=== PATIENT | female | born 1990 | race Caucasian/White ===

== ENCOUNTER 2018-10-02 20:33 | Outpatient (CLI) | payer MEDICAID ==
[~2018-10-02] VITALS: Ht 152.4 cm; Wt 66.9 kg
[~2018-10-02 20:33] MED LIST: ACET500C5 PO; PRENAT PO
[2018-10-02] MEDS ORDERED: ONDANSETRON 4 MG INJ IV STA (21:00)
[2018-10-02 21:32] VITALS: Ht 152.4 cm; Wt 66.9 kg
[2018-10-02] MEDS: LACTATED RINGER'S 1,000 ML IV* PRN ×2 (22:02→23:57)
--- NOTE | 2018-10-03 01:39 | PN ---
Triage Information Date/Time Reason for visit: nausea and vomiting Weeks of Gestation 26 weeks /Para Diabetes: none Hypertention: none Objective Intake and Output 10/02/18 10/02/18 10/03/18 1515:00 23:00 07:00 IntakeIntake Total 1000 ml BalanceBalance 1000 ml Heart Rate: 130's Heart Rate Comments Reactive Contractions: None Results/Medications Result Diagram: 10/02/18 2349 10/02/18 2349 Results 24 hrs Laboratory Tests Test 10/02/18 23:49 10/02/18 23:50 White Blood Count 7.7 # Red Blood Count 3.53 L Hemoglobin 11.3 L Hematocrit 33.6 L Mean Corpuscular Volume 95.2 Mean Corpuscular Hemoglobin 32.0 Mean Corpuscular Hemoglobin Concent 33.6 Red Cell Distribution Width 13.3 Platelet Count 237 Mean Platelet Volume 10.3 Immature Granulocytes % 0.500 H Neutrophils % 66.8 Lymphocytes % 23.5 Monocytes % 7.3 Eosinophils % 1.8 Basophils % 0.1 Nucleated Red Blood Cells % 0.0 Immature Granulocytes # 0.040 H Neutrophils # 5.1 Lymphocytes # 1.8 Monocytes # 0.6 Eosinophils # 0.1 Basophils # 0.0 Nucleated Red Blood Cells # 0.0 Sodium Level 137 Potassium Level 3.6 Chloride Level 104 Carbon Dioxide Level 23 Anion Gap 10 Blood Urea Nitrogen 5 L Creatinine 0.45 Est Glomerular Filtrat Rate mL/min > 60 Glucose Level 104 Calcium Level 8.9 Total Bilirubin 0.2 Direct Bilirubin 0.00 Indirect Bilirubin 0.2 Aspartate Amino Transf (AST/SGOT) 18 Alanine Aminotransferase (ALT/SGPT) 24 Alkaline Phosphatase 61 Total Protein 6.2 Albumin 3.4 Globulin 2.80 Albumin/Globulin Ratio 1.21 Urine Color STRAW Urine Clarity CLEAR Urine pH 8.0 Urine Specific [place] 1.006 Urine Ketones NEGATIVE Urine Nitrite NEGATIVE Urine Bilirubin NEGATIVE Urine Urobilinogen NEGATIVE Urine Leukocyte Esterase NEGATIVE Urine Hemoglobin NEGATIVE Urine Glucose NEGATIVE Urine Total Protein NEGATIVE Medications Current Medications Lactated Ringer's 1,000 ml @ 125 mls/hr Q8H PRN IV* IV HYDRATION Last administered on 10/02/18at 23:57; Admin Dose 125 MLS/HR; Start 10/02/18 at 21:00 Disposition: Discharge Assessment/Plan After IV hydration, patient feels better. JOSH DUNN MD Oct 03, 2018 01:39
== END 2018-10-03 01:42 | disposition home or self-care (01) ==
LOC: OBT 20:33 → L-D 20:35 → OBT 10-03 01:42
PROVIDERS: ATTEND Obstetrics & Gynecology
DX: O21.2 Late vomiting of pregnancy (principal); Z3A.26 26 weeks gestation of pregnancy
CPT/HCPCS: 36415; 76815; 80053; 81003; 85025; 96360; 96361; 96375; J2405; Z7500; G0463

== ENCOUNTER 2018-12-14 07:45 | Inpatient (IN) | payer MEDICAID ==
[~2018-12-14] VITALS: Ht 154.9 cm; Wt 72.7 kg
[~2018-12-14 07:45] MED LIST changes: -ACET500C5 PO
[2018-12-14] MEDS: LACTATED RINGER'S 1,000 ML IV SCH ×3 (08:17→21:48)
[2018-12-14 08:23] VITALS: Ht 154.9 cm; Wt 72.7 kg
[2018-12-14 08:24] VITALS: BP 147/76; PULSE 69; RESP 18
[2018-12-14] MEDS ORDERED: OXYTOCIN 30 UNITS/LR 500 ML IV PRN ×2 (08:30→15:30)
[2018-12-14] MEDS ORDERED: CARBOPROST 250 MCG INJ IM PRN ×2 (08:30→15:30)
[2018-12-14] MEDS ORDERED: MISOPROSTOL 200 MCG TAB PR PRN ×2 (08:30→15:30)
[2018-12-14] MEDS ORDERED: CEFAZOLIN 2 GM/50 ML (PMX) 50 ML IVPB SCH (08:30)
[2018-12-14] MEDS ORDERED: METHYLERGONOVINE 0.2 MG INJ IM PRN ×2 (08:30→15:30)
[2018-12-14] MEDS ORDERED: TERBUTALINE 0 ML ONE (09:12)
[2018-12-14] MEDS ORDERED: TERBUTALINE 1 MG/ML INJ SC ONE (09:30)
[2018-12-14] MEDS ORDERED: morphine SULFATE/PF (10 MG/10 ML) INJ ONE (09:50)
[2018-12-14] MEDS ORDERED: FENTAnyl 50 MCG/ML VIAL ONE (09:50)
--- NOTE | 2018-12-14 09:51 | HP ---
Date/Time of Note Date/Time of Note DATE: 12/14/18 TIME: 09:38 OB - History Hx of Present Free Text/Dictation 28y.0 here at 36w3d with c/o uc's 3-5min with severe pelvic pain which is constant. membrane intact she is scheduled for 12/19/18 for primary c/s for placenta previa on u/s 12/07/18 no VE done since she is diagnosed to have complete placenta previa( post) care was initiated on 13w, 1hr GTT was high f/b 3hr GTT which was wnl prepate for primary c/s. Chief Complaint: UC's Estimated Due Date: Jan 08, 2019 : 3 Para: 1 Spontaneous : 1 Therapeutic : 0 Care: Good Care Obstetrical Complications: None Medical Complications: None Past Family/Social History * Past Medical, Surgical, Family and Obstetric Histories reviewed from chart. Blood Type: O+ Rubella: immune RPR/VDRL: Negative GBS Status: Negative HBsAG: Negative OB Admission Exam Vital Signs Vital Signs Vital Signs Date Temp Pulse Resp B/P (MAP) Pulse Ox O2 O2 Flow FiO2 Time Delivery Rate 12/14/18 98.1 69 18 147/76 08:24 (99) Physical Exam HEENT: WNL Heart: Rhythm Normal Lungs: Clear, Equal Abdomen: WNL Extremities: Normal Reflexes: Normal Cervical Dilatation: other (no VE) Station: Other Amniotic Fluid: Other Heart Rate: 140's Accelerations: Accelerations Present Decelerations: No Decelerations Varibility: Moderate Contractions on Admission: < 5 Minutes Apart Intensity: Moderate Last 72 hours Lab Results OB Assessment/Plan Other Assessment: IUP 36w3d complete placenta previa in labor Plan: Section EFRAIN EAST MD Dec 14, 2018 09:49
[2018-12-14] MEDS ORDERED: ONDANSETRON 4 MG INJ ONE (10:01)
[2018-12-14] MEDS ORDERED: MIDAZOLAM 1 MG/ML 2 ML INJ ONE ×2 (10:01→10:22)
[2018-12-14] MEDS ORDERED: FAMOTIDINE 20 MG INJ ONE (10:01)
[2018-12-14] MEDS ORDERED: DEXAMETHASONE 4 MG/ML 1 ML INJ ONE (10:01)
--- NOTE | 2018-12-14 10:21 | PREAC ---
Date/Time of Note Date/Time of Note DATE: 12/14/18 TIME: 10:20 Anesthesia Eval and Record Evaluation Time Pre-Procedure Interview DATE: 12/14/18 TIME: 10:20 Age 28 Sex female NPO: 8 hrs Preoperative diagnosis placenta previa Planned procedure c section Past Medical History Past Medical History: None Surgery & Anesthesia Issues No known issue Meds Anticoagulation: No Beta Julio César within 24 hr: No Reason Beta Julio César not given: Pt. not on B-Julio César Reported Medications Multivit/Min/Fol Ac/Iron/Pren* ( S*) 1 Tab Tab, 1 TAB PO DAILY, TAB 01/06/14 Current Medications Lactated Ringer's 1,000 ml @ 125 mls/hr Q8H IV Last administered on 12/14/18at 08:17; Admin Dose 125 MLS/HR; Start 12/14/18 at 08:30 Cefazolin Sodium/ Dextrose 50 ml @ 100 mls/hr ONCE IVPB ; Start 12/14/18 at 08:30 Oxytocin/Lactated Ringer's 500 ml @ 0 mls/hr ONCE PRN IV .VAGINAL BLEEDING; Start 12/14/18 at 08:30 Methylergonovine Maleate (Methergine) 0.2 mg ONCE PRN IM .VAGINAL BLEEDING; Start 12/14/18 at 08:30 Carboprost Tromethamine (Hemabate) 250 mcg ONCE PRN IM .VAGINAL BLEEDING; Start 12/14/18 at 08:30 Misoprostol (Cytotec) 1,000 mcg ONCE PRN [place] .VAGINAL BLEEDING; Start 12/14/18 at 08:30 Meds reviewed: Yes Allergies Coded Allergies: No Known Allergy (Unverified , 12/23/13) Allergies Reviewed: Yes Labs/Studies Labs Reviewed: Reviewed by anesthesiologist Result Diagram: 12/14/18 0840 Laboratory Tests 12/14/18 08:40 Blood Bank Test 12/14/18 08:10 Antibody Screen NEGATIVE Blood Product Summary Counts Blood Type O POSITIVE Crossmatch Red Blood Cells Rh Immune Globulin Candidate NO test: N/A Pre-procedure Exam Last vitals Vital Signs Date Temp Pulse Resp B/P (MAP) Pulse Ox O2 O2 Flow FiO2 Time Delivery Rate 12/14/18 98.1 69 18 147/76 08:24 (99) Airway: Adequate mouth opening, Adequate thyromental dist Mallampati: Mallampati III Teeth: Normal Lung: Normal Heart: Normal ASA Physical Status ASA physical status: 2 Emergency: None Pre-operative Attestations Prior to commencing anesthesia and surgery, the patient was re-evaluated, there was verification of: *The patient's identity *The results of appropriate recent lab work and preoperative vital signs *The above evaluation not changing prior to induction *Anesthetic plan, risk benefits, alternative and complications discussed with patient/family; questions answered; patient/family understands, accepts and wishes to proceed. LAN JACOME DO Dec 14, 2018 10:21
[2018-12-14] MEDS ORDERED: ZOLPIDEM 5 MG TAB PO PRN ×2 (10:30→15:30)
[2018-12-14] MEDS ORDERED: HYDROmorphONE 0.5 MG/0.5 ML SYG IV PRN ×2 (10:30)
[2018-12-14] MEDS ORDERED: DIPHENHYDRAMINE 50 MG INJ IV PRN ×2 (10:30→15:30)
[2018-12-14] MEDS ORDERED: NALOXONE (0.4 MG/ML) INJ IV PRN (10:30)
[2018-12-14] MEDS ORDERED: KETOROLAC 30 MG INJ IV PRN (10:30)
[2018-12-14] MEDS ORDERED: ONDANSETRON 4 MG INJ IV PRN ×2 (10:30→15:30)
--- NOTE | 2018-12-14 10:54 | PAC ---
Date/Time of Note Date/Time of Note DATE: 12/14/18 TIME: 10:53 Post-Anesthesia Notes Post-Anesthesia Note Last documented vital signs Vital Signs Date Temp Pulse Resp B/P (MAP) Pulse Ox O2 O2 Flow FiO2 Time Delivery Rate 98 65 20 127/62 100 0 Activity: WNL Respiratory function: WNL Cardiovascular function: WNL Mental status: Baseline Pain reasonably controlled: Yes Hydration appropriate: Yes Nausea/Vomiting absent: Yes LAN JACOME DO Dec 14, 2018 10:54
--- NOTE | 2018-12-14 11:51 | OPPN ---
Date/Time of Note Date/Time of Note DATE: 12/14/18 TIME: 11:40 Operative Report Planned Procedure Procedure date Dec 14, 2018 Procedure(s) primary LTCS Performed by see signature line Senior Peoplesoft Developer: KATHRYN LAU MD 2nd Senior Peoplesoft Developer none Anesthesiologist: LAN JACOME DO Pre-procedure diagnosis IUP 36w1d complete placenta previa in labor [id number] Anesthesia Type: [id number] spinal Post-Procedure Post-procedure diagnosis delivered normal male same as above Findings Live Baby [m], Apgars [8] and [9], weight [6lb4oz], position [lot], [vx ] presentation [0]cord. Estimated Blood Loss: 500 - 600 mls Specimen(s) none Grafts/Implant(s) none Complication(s) none EFRAIN EAST MD Dec 14, 2018 11:51
[2018-12-14 13:00] VITALS: BP 107/63; PULSE 71
--- NOTE | 2018-12-14 14:20 | OPR ---
DATE OF OPERATION: 12/14/2018 PREOPERATIVE DIAGNOSES: 36 weeks and 1 day with a complete placenta previa, in labor. POSTOPERATIVE DIAGNOSES: 36 weeks and 1 day with a complete placenta previa, in labor, delivered normal male , 6 pounds 4 ounces, 8 and 9. OPERATION PROCEDURE: Primary low transverse section. ANESTHESIA: Spinal. ANESTHESIOLOGIST: Dr. Tellez. SURGEON: Jatinder Rogel MD HYDRAULIC SPINNER: adrian . ESTIMATED BLOOD LOSS: Approximately 500 mL. PROCEDURE: Under proper induction of spinal anesthesia, the patient was placed in frog position. Munoz catheter was introduced into the bladder under sterile condition and repositioned to supine. Abdominal wall was prepped and draped in usual aseptic manner. A Pfannenstiel incision was made and the incision was carried down through the subcutaneous tissue to the anterior recti fascia which was incised transversely in length of the incision. Fascial flap was created by blunt and sharp dissection of tendinous attachment cephalad and 2 rectus muscles split and peritoneal cavity was entered. Low portion of the uterus was exposed and a transverse incision was made above the uterovesical reflection. Incision was carried down layer by layer until reached the amniotic membrane, which was ruptured, clear fluid and normal male infant was born from the left occiput transverse position. Mouth and nose were cleaned, delayed cord clamp done, and cut and handed to the respiratory care personnel for further care. Placenta was removed. There is no significant blood loss after placenta was removed and it was read higher than the previa. Uterine cavity was completely explored and uterus was exteriorized and the incision was closed using #1 chromic catgut in continuous interlocking manner on the first layer and second layer using 0 chromic catgut in continuous manner. No bleeder was noted and all the sponge count was correct, and after irrigation, the abdominal cavity done and the uterus was relocated into abdominal cavity, and the uterine incision rechecked for bleeder, which was intact. Final sponge count correct and the parietal peritoneum was closed using 0 chromic catgut in continuous manner, muscle closed with 0 chromic catgut in continuous manner. Fascia closed with #1 Vicryl in continuous manner in 2 segments. Subcutaneous tissue irrigated with water. This layer was approximated with a 2-0 plain in continuous manner. Skin closed with Insorb. Pressure dressing applied. Estimated blood loss approximately 500 mL. The patient sent to recovery room in stable condition. Urine output is approximately 200. Urine clear. Dictated By: JATINDER KAY/[place] Conf#: [id number] DID#: [id number] CC: GUSTAVO FERNANDES MD;*EndCC* MTDD
[2018-12-14] MEDS ORDERED: LACTATED RINGER'S 1,000 ML IV SCH (15:17)
[2018-12-14] MEDS ORDERED: LANOLIN HPA 1 PKT TOP PRN (15:30)
[2018-12-14] MEDS ORDERED: OXYCODONE/ACETAMINOPHEN (5/325) TAB PO PRN (15:30)
[2018-12-14 17:00] VITALS: BP 111/70; PULSE 72; RESP 20
[2018-12-14 17:45] VITALS: BP 111/60; PULSE 68; RESP 17
[2018-12-14 20:05] VITALS: BP 111/60; PULSE 66; RESP 18
[2018-12-14] MEDS: SENNA/DOCUSATE NA (8.6MG/50MG) TAB PO SCH (21:45)
[2018-12-15 03:20] VITALS: BP 99/61; PULSE 76; RESP 20
[2018-12-15] MEDS: LACTATED RINGER'S 1,000 ML IV SCH ×2 (05:41→16:30)
[2018-12-15 08:00] VITALS: BP 97/56; PULSE 77; RESP 18
[2018-12-15] MEDS: SENNA/DOCUSATE NA (8.6MG/50MG) TAB PO SCH ×2 (08:28→21:31)
[2018-12-15] MEDS: OXYCODONE/ACETAMINOPHEN (5/325) TAB PO PRN ×3 (12:34→22:51)
--- NOTE | 2018-12-15 15:55 | PN ---
Date/Time of Note Date/Time of Note DATE: 12/15/18 TIME: 15:53 OB Subjective Subjective Subjective POD# 1 Patient is doing well. She denies nausea, vomiting, shortness of breath, chest pain, headache. She has been ambulating without difficulty, tolerating regular diet. Pain is well controlled on current medications OB Objective Objective Objective VS - Last 72 Hours, by Label Date Temp Pulse Resp B/P (MAP) Pulse Ox O2 O2 Flow FiO2 Time Delivery Rate 12/15/18 98.3 77 18 97/56 (70) Room Air 08:00 12/15/18 98.6 76 20 99/61 (74) 96 Room Air 03:20 12/14/18 98.7 66 18 111/60 Room Air 20:05 (77) 12/14/18 98.1 68 17 111/60 98 Room Air 17:45 (77) 12/14/18 98.1 72 20 111/70 100 Room Air 17:00 (84) 12/14/18 98.2 71 107/63 Room Air 13:00 (78) 12/14/18 98.1 69 18 147/76 08:24 (99) General: AAO X 3, comfortable, NAD, appropriate mood and affect. ABD: +BS. Soft, non-tender. Uterus 2 cm below umbilicus Incision: Clear, dry, intact. No erythema, drainage or induration. Flank: No CVA tenderness (B/L) LE: Mild edema. No clubbing, cyanosis, thigh or calf tenderness (B/L). Homans 'sign is negative - OB Assessment/Plan Other plan: 28 years old 3 para 12 02 s/p by Melany delivery for complete placenta previa at 36 weeks and 3 days. POD#1 - AF, VSS - Contraception methods with R/B/A/FR discussed - Continue care GUSTAVO FERNANDES Dec 15, 2018 15:55
[2018-12-15 16:20] VITALS: BP 122/76; PULSE 80; RESP 18
[2018-12-15 20:00] VITALS: BP 124/74; PULSE 75; RESP 20
[2018-12-16] MEDS: LACTATED RINGER'S 1,000 ML IV SCH ×2 (00:30→11:53)
[2018-12-16 04:00] VITALS: BP 108/63; PULSE 66; RESP 18
[2018-12-16] MEDS: OXYCODONE/ACETAMINOPHEN (5/325) TAB PO PRN (06:50)
[2018-12-16 08:00] VITALS: BP 113/66; PULSE 72; RESP 18
[2018-12-16] MEDS: SENNA/DOCUSATE NA (8.6MG/50MG) TAB PO SCH ×2 (08:41→22:06)
[2018-12-16] MEDS ORDERED: MAGNESIUM HYDROXIDE 30ML CUP PO ONE (12:00)
--- NOTE | 2018-12-16 12:23 | PN ---
Date/Time of Note Date/Time of Note DATE: 12/16/18 TIME: 12:21 OB Subjective Subjective Subjective POD#2 Patient is doing well. She denies nausea, vomiting, shortness of breath, chest pain, headache. She has been ambulating without difficulty, tolerating regular diet. Pain is well controlled on current medications OB Objective Objective Objective VS - Last 72 Hours, by Label Date Temp Pulse Resp B/P (MAP) Pulse Ox O2 O2 Flow FiO2 Time Delivery Rate 12/16/18 98.1 72 18 113/66 Room Air 08:00 (82) 12/16/18 97.8 66 18 108/63 Room Air 04:00 (78) 12/15/18 98.5 75 20 124/74 Room Air 20:00 (91) 12/15/18 98.3 80 18 122/76 16:20 (91) 12/15/18 98.3 77 18 97/56 (70) Room Air 08:00 12/15/18 98.6 76 20 99/61 (74) 96 Room Air 03:20 12/14/18 98.7 66 18 111/60 Room Air 20:05 (77) 12/14/18 98.1 68 17 111/60 98 Room Air 17:45 (77) 12/14/18 98.1 72 20 111/70 100 Room Air 17:00 (84) 12/14/18 98.2 71 107/63 Room Air 13:00 (78) 12/14/18 98.1 69 18 147/76 08:24 (99) General: AAO X 3, comfortable, NAD, appropriate mood and affect. ABD: +BS. Soft, non-tender. Uterus 2 cm below umbilicus Incision: Clear, dry, intact. No erythema, drainage or induration. Flank: No CVA tenderness (B/L) LE: Mild edema. No clubbing, cyanosis, thigh or calf tenderness (B/L). Homans 'sign is negative OB Assessment/Plan Other plan: 28 years old 3 para 12 02 s/p delivery for complete placenta previa at 36 weeks and 3 days. POD#2 - AF, VSS - Contraception methods with R/B/A/FR discussed - Continue care - Discharge home tomorrow - Rx and instruction given - Follow up in one and 6 weeks GUSTAVO FERNANDES Dec 16, 2018 12:23
--- NOTE | 2018-12-16 12:25 | DS ---
Date/Time of Note Date/Time of Note DATE: 12/16/18 TIME: 12:23 Obstetrical Discharge Record Final Diagnosis Final Diagnosis: delivered Other Final Diagnosis 28 years old 3 para 12 02 s/p delivery for complete placenta previa at 36 weeks and 3 days. POD#2. Post course is unremarkable. She is ambulating and tolerating regular diet. She is voiding without difficulty. Pain is controlled on current medication - AF, VSS - Contraception methods with R/B/A/FR discussed - Continue care - Discharge home tomorrow - Rx and instruction given - Follow up in one and 6 weeks Section Section: Primary (Complete placenta previa) Condition on Discharge Physical Assessment Last Vitals: Vital Signs Date Temp Pulse Resp B/P (MAP) Pulse Ox O2 O2 Flow FiO2 Time Delivery Rate 12/16/18 98.1 72 18 113/66 Room Air 08:00 (82) 12/15/18 96 03:20 Voiding: Yes Bowel Movement: Yes Breast: Soft, non-tender Fundus: Firm Patient Condition: Stable GUSTAVO FERNANDES Dec 16, 2018 12:25
[2018-12-16] MEDS: IBUPROFEN 800 MG TAB PO SCH ×2 (12:57→22:07)
[2018-12-16] MEDS ORDERED: IBUPROFEN 800 MG TAB PO SCH (14:00)
[2018-12-16 16:55] VITALS: BP 114/61; PULSE 68; RESP 18
[2018-12-16 20:00] VITALS: BP 130/85; PULSE 80; RESP 20
[2018-12-17 03:07] VITALS: BP 124/66; PULSE 80; RESP 20
[2018-12-17] MEDS: IBUPROFEN 800 MG TAB PO SCH ×2 (05:34→15:50)
[2018-12-17 08:00] VITALS: BP 109/71; PULSE 70; RESP 18
[2018-12-17] MEDS: SENNA/DOCUSATE NA (8.6MG/50MG) TAB PO SCH (08:23)
[2018-12-17] MEDS ORDERED: DIPHTH/TET/ACEL PERTUSS (ADULT) 0.5 ML VIAL IM* ONE (09:00)
--- NOTE | 2018-12-17 12:10 | DS ---
Date/Time of Note Date/Time of Note DATE: 12/17/18 TIME: 12:09 Obstetrical Discharge Record Final Diagnosis Final Diagnosis: delivered Other Final Diagnosis Subjective: 28-year-old , postoperative day #3 from a section delivery at the 36 weeks and 3 days for complete placenta previa. Patient without complaints. Breast and bottlefeeding. Ambulating. Vaginal bleeding within normal limits. Voiding. Tolerating regular diet. Objective: Vital signs within normal limits. H/H 10.6/30.4. General: No apparent distress. Breast: Normal. Fundus 2 fingerbreadths below the umbilicus. Extremities nontender to palpation. Blood Type: O+ Rubella: immune RPR/VDRL: Negative GBS Status: Negative HBsAG: Negative Assessment/plan: 1. [id number] , postoperative day #3 from a section She was admitted to the [facility] for a scheduled section. Her hospital course was uncomplicated. She delivered male weighing 2830 g with Apgars 8 and 9 on 12/14/2018. Patient to be discharged home in stable condition with follow up in 6 weeks. Her fundus was below the level of the umbilicus. General: No apparent distress. Breast: Normal. Incision was clean dry and intact. Vital signs within normal limits. H/H 10.6/30.4. 2. Acute blood loss anemia-H/H 0.6/30.4 vitals stable. Ferrous sulfate. Disposition: Follow-up in 6 weeks Condition on Discharge Physical Assessment Patient Condition: Stable SID JUNIOR MD Dec 17, 2018 12:10
--- NOTE | 2018-12-18 18:45 | DELSUM ---
Delivery Summary A-C Datetime Report Generated by CPN: 12/18/2018 18:45 DELIVERY PERSONNEL Photo Mask Cleaner: Schroeder, [place] MATERNAL INFORMATION Delivery Anesthesia: Spinal Medications in Delivery: see anesthesia records Delivery QBL (ml): 500 Placenta Cultured: No Maternal Complications: Other Other Maternal Complications: Complete previa LABOR SUMMARY EDC: 01/10/2019 00:00 No. Babies in Womb: 1 Attempted: No Labor Anesthesia: None LABOR INFORMATION Reason for Induction: Not Applicable Onset of Labor: 12/14/2018 06:00 Group B Beta Strep: Not Done Antibiotics # of Doses: 1 Antibiotics Time of Last Dose: 12/14/2018 10:00 Steroids Given: None Reason Steroids Not Administered: Not Applicable MEMBRANES Membranes Rupture Method: Artificial Rupture of Membranes: 12/14/2018 10:16 Length of Rupture (hr): 0.02 Amniotic Fluid Color: Clear Amniotic Fluid Amount: Moderate Amniotic Fluid Odor: Normal STAGES OF LABOR Stage 3 hr: 0 Stage 3 min: 1 Total Time in Labor hr: 4 Total Time in Labor min: 18 CSECTION DELIVERY Primary Indication: Placenta Previa CSection Urgency: Emergency CSection Incidence: Primary Labor: Labor Elective: Nonelective CSection Incision: Lower Uterine Transverse BABY A INFORMATION Delivery Date/Time: 12/14/2018 10:17 Method of Delivery: Born in Route : No : N/A Forceps: N/A Vacuum Extraction: N/A Shoulder Dystocia : No SHOULDER DYSTOCIA BABY A Infant Delivery Date/Time: 12/14/2018 10:17 PRESENTATION/POSITION BABY A Presentation: Cephalic Cephalic Presentation: Vertex Vertex Position: Left Occipital Anterior Breech Presentation: N/A PLACENTA INFORMATION BABY A Placenta Delivery Time : 12/14/2018 10:18 Placenta Method of Delivery: Manual Removal Placenta Status: Delivered SCORES BABY A Heart Rate 1 min: >100 bpm Resp Effort 1 min: Good Cry Reflex Irritability 1 min: Cough/Sneeze/Pulls Away Muscle Tone 1 min: Active Motion Color 1 min: Blue/Pale Resuscitation Effort 1 min: Tactile Stimulation SCORE 1 MIN: 8 Heart Rate 5 min: >100 bpm Resp Effort 5 min: Good Cry Reflex Irritability 5 min: Cough/Sneeze/Pulls Away Muscle Tone 5 min: Active Motion Color 5 min: Body [place], Extremit Blue SCORE 5 MIN: 9 INFORMATION BABY A Gestational Age at Delivery: 36.1 Gestational Status: Late - 34- 36.6 Weeks Infant Outcome : Liveborn, with signs of life Infant Condition : Stable Infant Sex: Male IDENTIFICATION/MEDS BABY A ID Band Number: [id number] ID Band Location: Right Leg; Left Arm Sensor Applied: Yes Sensor Number: [id number] Sensor Location : Cord Clamp WEIGHT/LENGTH BABY A Birthweight (gm): 2830 Infant Weight (lb): 6 Infant Weight (oz): 4 Infant Length (in): 18.50 Infant Length (cm): 46.99 CORD INFORMATION BABY A No. Cord Vessels: 3 Nuchal Cord : Around Neck x1, Loose Cord Blood Taken: Yes Suction: Mouth; Nose ASSESSMENT BABY A Complications: None Physical Findings at Delivery: Within Normal Limits Respirations: Appears Normal Roof Truss Detailer/ALS Called : No Care By: RT/KAREY RNC Transferred To: Remains with Mother
== END 2018-12-17 18:35 | disposition home or self-care (01) | DRG 786 ==
LOC: OBT 07:45 → L-D 07:49 → OBT 08:20 → L-D 08:33 → PP1 17:43
PROVIDERS: ADMIT Obstetrics & Gynecology; ATTEND Obstetrics & Gynecology
PROC: 10D00Z1 Extraction of Products of Conception, Low, Open Approach (ICD-10-PCS; principal; 2018-12-14 09:30)
DX: O44.03 Complete placenta previa NOS or without hemorrhage, third trimester (principal); O60.14X0 Preterm labor third trimester with preterm delivery third trimester, not applicable or unspecified; D62 Acute posthemorrhagic anemia; Z3A.36 36 weeks gestation of pregnancy; Z37.0 Single live birth
CPT/HCPCS: 76815; 81001; 85025; 85610; 85730; 86592; 86850; 86900; 86901; 86920; 87086; 87340; 90715; 99464; G0463; J0690; J1100; J1885; J2250; J2274; J2405; J2590; J3010; J3105; J7120

== ENCOUNTER 2018-12-22 02:34 | Emergency (ER) | payer MEDICAID ==
[~2018-12-22] VITALS: Ht 152.4 cm; Wt 70.0 kg
[2018-12-22 02:48] VITALS: Ht 152.4 cm; Wt 70.0 kg
--- NOTE | 2018-12-22 03:52 | ERD ---
ER Documentation Chief Complaint Chief Complaint BIBA 881 for postop pain 8 days ago, HPI This is a 28-year-old female with a past medical history of GERD, previously at 36 weeks gestational age complicated by placenta previa and peripartum infection requiring a 8 days ago, still on antibiotics, who is now presenting for a transient now resolved episode of sharp burning epigastric abdominal pain with nausea but no vomiting. The patient does not endorse any alleviating factors. It does seem to go away on its own. She does endorse that food exacerbates her symptoms. The patient does report having bowel movements daily, but she does feel slight constipation. She has been on medication for constipation since her delivery. The patient does not have any lower abdominal pain. The patient does not endorse any pain at her surgical site. She denies diarrhea. She denies dysuria or hematuria or urgency or frequency. She denies any significant vaginal pain or discharge or bleeding today. The patient denies fever or chills. The patient has had no headache or vision changes. The patient does not endorse neck or back pain. The patient denies lightheadedness or dizziness. The patient has had no chest pain or trouble breathing. The patient has had no focal deficits. The patient has had no weakness or numbness or tingling to the face or extremities. ROS All systems reviewed and are negative except as per history of present illness. Medications Home Meds Reported Medications Multivit/Min/Fol Ac/Iron/Pren* ( S*) 1 Tab Tab, 1 TAB PO DAILY, TAB 01/06/14 Allergies Allergies: Coded Allergies: No Known Allergy (Unverified , 12/22/18) PMhx/Soc History of Surgery: Yes () Anesthesia Reaction: No Hx Neurological Disorder: No Hx Respiratory Disorders: No Hx Cardiac Disorders: No Hx Psychiatric Problems: No Hx Miscellaneous Medical Probl: Yes (GERD) Hx Alcohol Use: No Hx Substance Use: No Hx Tobacco Use: No Smoking Status: Never smoker FmHx Family History: No diabetes Physical Exam Vitals Vital Signs Date Temp Pulse Resp B/P (MAP) Pulse Ox O2 O2 Flow FiO2 Time Delivery Rate 12/22/18 98.1 67 20 125/74 100 02:48 (91) Physical Exam Const: No acute distress Head: Atraumatic Eyes: Normal Conjunctiva ENT: Normal External Ears, Nose and Mouth. Neck: Full range of motion. No meningismus. Resp: Clear to auscultation bilaterally Cardio: Regular rate and rhythm, no murmurs Abd: Soft, non tender, non distended. Normal bowel sounds. Healing site. Skin: No petechiae or rashes Back: No midline or flank tenderness Ext: No cyanosis, or edema Neur: Awake and alert Psych: Normal Mood and Affect Result Diagram: 12/22/18 0256 12/22/18 0256 Results 24 hrs Laboratory Tests Test 12/22/18 02:56 White Blood Count 8.0 10^3/ul Red Blood Count 3.94 10^6/ul Hemoglobin 12.4 g/dl Hematocrit 36.6 % Mean Corpuscular Volume 92.9 fl Mean Corpuscular Hemoglobin 31.5 pg Mean Corpuscular Hemoglobin Concent 33.9 g/dl Red Cell Distribution Width 12.3 % Platelet Count 399 10^3/UL Mean Platelet Volume 9.4 fl Immature Granulocytes % 1.100 % Neutrophils % 69.6 % Lymphocytes % 20.1 % Monocytes % 5.9 % Eosinophils % 3.0 % Basophils % 0.3 % Nucleated Red Blood Cells % 0.0 /100WBC Immature Granulocytes # 0.090 10^3/ul Neutrophils # 5.6 10^3/ul Lymphocytes # 1.6 10^3/ul Monocytes # 0.5 10^3/ul Eosinophils # 0.2 10^3/ul Basophils # 0.0 10^3/ul Nucleated Red Blood Cells # 0.0 10^3/ul Sodium Level 140 mmol/L Potassium Level 4.0 mmol/L Chloride Level 108 mmol/L Carbon Dioxide Level 20 mmol/L Anion Gap 12 Blood Urea Nitrogen 14 mg/dl Creatinine 0.56 mg/dl Est Glomerular Filtrat Rate mL/min > 60 mL/min Glucose Level 105 mg/dl Calcium Level 9.1 mg/dl Total Bilirubin 0.5 mg/dl Direct Bilirubin 0.00 mg/dl Indirect Bilirubin 0.5 mg/dl Aspartate Amino Transf (AST/SGOT) 40 IU/L Alanine Aminotransferase (ALT/SGPT) 50 IU/L Alkaline Phosphatase 139 IU/L Total Protein 7.3 g/dl Albumin 3.6 g/dl Globulin 3.70 g/dl Albumin/Globulin Ratio 0.97 Lipase 114 U/L Procedures/MDM MDM The patient's presentation warrants further investigation. Previous medical records, if available, were reviewed. LABS The patient's laboratory testing was obtained and reviewed. No emergent treatment was required unless described below. CBC: No E/o systemic infection or severe anemia or thrombocytopenia Chemistry: No E/o severe acidosis or alkalosis or renal failure or liver disease or diabetic ketoacidosis Lipase: No E/o pancreatitis Urine: Patient did not provide TREATMENT/DISPOSITION The patient presents for epigastric pain. It resolved without any treatment. I do suspect gastritis versus PUD versus GERD. This may be treated in an outpatient setting. The patient did have a recent , but this appears to be healing nicely. The patient may continue taking her medications as prescribed. I have low suspicion for a postoperative complication such as an emergent postoperative intra-abdominal infection. I do not suspect a vaginal or uterine infection. I do not suspect a sexually transmitted infection or PID. I do not suspect tubo- ovarian abscess or ovarian torsion. I do not suspect or ectopic . The patient does not have any evidence of peritonitis. The patient does not have clinical symptoms concerning for mesenteric ischemia or ischemic colitis. The patient does not have right upper quadrant tenderness, and I have low suspicion for gallstones, cholecystitis or biliary colic. The patient does not have left upper quadrant tenderness. I have low suspicion for pancreatitis. The patient does not have any right lower quadrant tenderness, or periumbilical tenderness. I have low suspicion for appendicitis. The patient does not have suprapubic tenderness. I have decreased suspicion for cystitis. The patient does not have any left lower quadrant tenderness, and I have low suspicion for diverticulosis or diverticulitis. The patient does not have any flank tenderness. The patient does not have gross hematuria. I have decreased suspicion for nephrolithiasis or renal colic. The patient does not have any palpable pulsatile mass or severe abdominal pain radiating to the back. I have low suspicion for aortic aneurysm, dissection or rupture. DISCHARGE Upon reevaluation of the patient, symptoms have improved. No emergent diagnoses were identified. At this time, I feel that the patient stable for discharge. The patient was instructed to follow-up with a primary care physician in 1-3 days. The patient will be given strict precautions with which to return to the emergency department. Prescriptions: None The patient's blood pressure was elevated at greater than 120/80 while in the emergency department. The patient was otherwise stable with no evidence of hypertensive urgency or emergency. The patient does not require admission for blood pressure control. I have discussed with the patient the risks of hypertension. I have instructed the patient to return to the ER for any new or worsening symptoms including chest pain, shortness of breath, headache, blurred vision, confusion, nausea, vomiting or LOC. I have advised the patient to follow up with the primary care physician for outpatient monitoring and treatment for hypertension in 1-3 days. Disclaimer: Inadvertent spelling and grammatical errors are likely due to EHR/dictation software use and do not reflect on the overall quality of patient care. Note that the electronic time recorded on this note does not necessarily reflect the actual time of the patient encounter. Departure Diagnosis: Primary Impression: Epigastric pain Additional Impressions: Nausea History of Patient Instructions: Section (), Epigastric Pain (Uncertain Cause), Nausea Additional Instructions: Thank you for for coming to [facility] for your care today. Please ask your nurse or provider if you have questions about your care today and do not leave until all your questions have been answered. Please use any medications given as directed and follow-up with your doctor (or the doctor you were referred to) in the next 1-3 days. If you do not have a primary care doctor you may follow up at the [facility] or [facility] (listed below). You may also use motrin and tylenol as needed for fever and/or pain unless instructed otherwise by your provider or nurse. Indications for more urgent follow-up have been discussed, but you may return to the Emergency Department at ANY time for any worrisome or worsening symptoms. If you have abdominal pain, please know that no test or exam you received is perfect and you should follow up within 8 hours for continued pain. If you had any imaging studies today, such as an X-Ray or CT Scan, these studies will be reviewed later by a radiologist. You will be called if there are impor tant findings that were not identified today, so make sure the contact information you provided at registration is correct. If you received any narcotic pain control medicine today, such as Vicodin, Morphine or Dilaudid, your coordination and judgment may be affected for a number of hours. Please do not drive or operate heavy machinery, and you may want someone to assist you at home. If you were given a prescription for narcotic medication, be aware that it is very addictive- use sparingly and only if necessary. PLEASE SEEK FURTHER EVALUATION AND MANAGEMENT AT YOUR DOCTORS OFFICE WITHIN THE NEXT 1-3 DAYS. IT IS YOUR RESPONSIBILITY TO MAKE AN APPOINTMENT FOR FOLOW-UP CARE. IF YOU HAVE A PRIMARY DOCTOR, PLEASE CALL THEIR OFFICE TO SCHEDULE AN APPOINTMENT FOR FOLLOW UP. IF YOU DO NOT HAVE A PRIMARY DOCTOR YOU CAN CALL OUR PHYSICIAN REFERRAL HOTLINE AT IF YOU CAN NOT AFFORD TO SEE A PHYSICIAN YOU CAN CHOSE FROM THE FOLLOWING [facility]: [facility] [address] [facility]. [facility] [address] [facility] [address] [facility] [facility] [address] [facility]. [facility] [address] [facility]. [facility]. [address] PITA MORRIS MD Dec 22, 2018 03:52
[2018-12-22 04:13] VITALS: BP 104/66; PULSE 67; RESP 24
== END 2018-12-22 04:13 | disposition home or self-care (01) ==
LOC: E/R 02:34
DX: O99.89 Other specified diseases and conditions complicating pregnancy, childbirth and the puerperium (principal); R10.13 Epigastric pain
CPT/HCPCS: 36415; 80053; 83690; 85025; 99283